=== PATIENT | female | born 2000 | race Caucasian/White ===

== ENCOUNTER 2022-12-05 11:11 | Emergency (ER) | payer BC ==
[2022-12-05] MEDS ORDERED: ACETAMINOPHEN TAB 325 MG TAB PO STA (11:32)
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
[2022-12-05 13:00] VITALS: BP 111/72; PULSE 96; RESP 14; TEMP 97.6
== END 2022-12-05 13:00 | disposition home or self-care (01) ==
LOC: EC 11:11
DX: S66.912A Strain of unspecified muscle, fascia and tendon at wrist and hand level, left hand, initial encounter (principal); W20.8XXA Other cause of strike by thrown, projected or falling object, initial encounter; Y93.43 Activity, gymnastics
CPT/HCPCS: 99283